=== PATIENT | female | born 1945 | race African-American/Black ===

== ENCOUNTER 2021-03-21 15:56 | Inpatient (IN) | payer MEDICARE, SELFPAY ==
[~2021-03-21] VITALS: Ht 162.6 cm; Wt 131.5 kg
[2021-03-21 15:56] VITALS: BP_SYST 154
--- NOTE | 2021-03-21 15:56 | NUR ---
BROUGHT IN BY FERMIN [facility] AND [facility], TRIAGED AND REPORT GIVEN TO QUOC
--- NOTE | 2021-03-21 16:15 | NUR ---
Pt. bib ACLS post dizzy episode at home, pt. states fell earlier today landed on her but no c/o pain denies any LOC or dizziness at the time of fall, "just tripped,"but then later became dizzy family called 911 on EMS arrival at pts. home BP was low, pt. currently has no pain nor dizziness
--- NOTE | 2021-03-21 17:14 | NUR ---
pulse 130 prior to lopressor, post IVP pulse 111
[2021-03-21] MEDS ORDERED: METOPROLOL TARTRATE 5 MG/5 ML AMPUL IVP ONE (17:15)
--- NOTE | 2021-03-21 17:21 | NUR ---
ER at bedside examining patient.
[2021-03-21 17:54] LABS: BASOPHILS % (AUTO) 0.1 % (0.0-2.0); EOSINOPHILS % (AUTO) 0.2 % (0.0-4.0); HEMATOCRIT 37.5 % (36-48); HEMOGLOBIN 12.5 g/dL (12.0-16.0); LYMPHOCYTES # (AUTO) 0.3 K/uL (1.0-5.5); LYMPHOCYTES % (AUTO) 2.3 % (20.5-51.5); MEAN CORPUSCULAR HEMOGLOBIN 33 pg (27-31); MEAN CORPUSCULAR HGB CONC 33 % (32-36); MEAN CORPUSCULAR VOLUME 98 fL (79.0-98.0); MONOCYTES % (AUTO) 7.3 % (1.7-9.3); NEUTROPHILS % (AUTO) 90.1 % (40.0-70.0); PLATELET COUNT (AUTO) 151 K/uL (130-430); RED BLOOD CELL COUNT(AUTO) 3.83 MIL/uL (4.2-6.2); RED CELL DISTRIBUTION WIDTH 17.6 % (9.0-15.0); WHITE BLOOD COUNT (AUTO) 13.3 K/uL (4.8-10.8)
[2021-03-21 18:06] LABS: CHLORIDE 100 mmol/L (98-107); SODIUM SERUM 133 mmol/L (136-145)
[2021-03-21 18:07] LABS: ALANINE AMINOTRANSFERASE 40 U/L (12-78); ALBUMIN 2.9 g/dL (3.4-4.8); ANION GAP 12 (5-15); ASPARTATE AMINOTRANSFERASE 64 U/L (10-37); CALCIUM 8.3 mg/dL (8.4-11.0); CREATININE 0.94 mg/dL (0.55-1.30); GLUCOSE 103 mg/dL (70-99); TOTAL BILIRUBIN 0.9 mg/dL (0.0-1.0); UREA NITROGEN, BLOOD 15 mg/dL (8-21)
[2021-03-21 18:08] LABS: POTASSIUM 2.9 mmol/L (3.5-5.1)
[2021-03-21] MEDS ORDERED: MAGNESIUM SULFATE 50 ML IV ONE (18:15)
[2021-03-21] MEDS ORDERED: POTASSIUM CHLORIDE 20 MEQ/PKT PACKET PO ONE (18:15)
[2021-03-21] MEDS ORDERED: KCL 40 mEq in 100 mL (PREMIX) 100 ML IV ONE (18:15)
--- NOTE | 2021-03-21 19:20 | NUR ---
Amadou sánchez in ED - 03/21/21 at 1930 by SDEDGJL Report given to KELLY Hernandez for continuation of care
--- NOTE | 2021-03-21 19:28 | NUR ---
pt was up to bedside commode when getting back to bed she became sob. start o2 at 4 l nc
[2021-03-21] MEDS ORDERED: cefTRIAXone 1 GM VIAL IM ONE (19:30)
[2021-03-21] MEDS: LIDOCAINE PATCH 5% 1 EA TP SCH (19:30)
[2021-03-21] MEDS ORDERED: KCL 20 mEq in D5/0.45NS 1000mL 1,000 ML IV ONE (19:30)
[2021-03-21] MEDS ORDERED: ACETAMINOPHEN 500 MG TABLET PO ONE (19:30)
[2021-03-21] MEDS ORDERED: DOXYCYCLINE HYCLATE 100 MG CAPSULE PO ONE (19:30)
[2021-03-21] MEDS ORDERED: cefTRIAXone 1 GM IVPB PREMIX 50 ML IV ONE (20:00)
[2021-03-21 20:12] LABS: BILIRUBIN,URINE NEGATIVE (NEGATIVE); BLOOD, URINE 3+ (NEGATIVE); COLOR,URINE YELLOW (YELLOW); GLUCOSE,URINE NEGATIVE (NEGATIVE); KETONES,URINE 1+ (NEGATIVE); LEUKOCYTE ESTERASE ,URINE TRACE (NEGATIVE); NITRITE, URINE NEGATIVE (NEGATIVE); PROTEIN URINE 2+ (NEGATIVE); UROBILINOGEN,URINE 0.2 (0.2-1.0)
--- NOTE | 2021-03-21 20:25 | NUR ---
PT HELPED UP TO BEDSIDE COMMODE, LINENS CHANGED, PT HAD DIARRHEA.. PLACE BACK IN BED AND REPOSITIONEDFOR COMFORY. PLACED BACKE ON BEDSIDE MONITOR
--- NOTE | 2021-03-21 21:09 | NUR ---
Note gonzalo in EDM - 03/21/21 at 2113 by SDEDGJL Patient will be admitted to care of [facility]. Admitted to TELE unit. Will go to room 102A. Belongings list completed. Complete and up to date summary report printed. SBAR report to be given at bedside with opportunity for questions.
[2021-03-21 21:50] LABS: CLARITY/URINE HAZY (CLEAR)
--- NOTE | 2021-03-21 22:02 | NUR ---
20 GA PIV x 1 attempt to LHA, good blood return, easy NS flush. D5 1/2 with 20 mEq KCl at 100 mL/hr now infusing to new site.
--- NOTE | 2021-03-21 22:02 | NUR ---
IV TO RIGHT HAND CAME OUT, RESTARTED BY FRANK MENDOZA. PT REMAINS ON MONITOR. V/S STABLE. SON AT BEDSIDE
[2021-03-21 22:23] LABS: BACTERIA,URINE MODERATE /HPF (None Seen); MUCUS,URINE None Seen /LPF (None Seen)
--- NOTE | 2021-03-21 23:09 | NUR ---
SPOKE TO MD SHANIA DALE DOESNOT WANT TO TRANSPORT WITH BLOOD PRESSURE BEING 91/57. PT TO RECEIVE BOLUS
--- NOTE | 2021-03-21 23:15 | NUR ---
B/P now 81/48, hr 102. Dr. Kline made aware. NS 250 mL bolus in progress per verbal order of Dr. Kline. Pt alert, responsive, denies c/o pain or discomfort.
[2021-03-21] MEDS ORDERED: AZITHROMYCIN 500 MG in NS 250 ML IV ONE (23:30)
[2021-03-21] MEDS ORDERED: NS 500 ML IV ONE (23:30)
--- NOTE | 2021-03-21 23:30 | NUR ---
B/P 104/62, HR 100. NS bolus 500 mL now infusing.
[2021-03-21] MEDS ORDERED: AZITHROMYCIN 500 MG/VIAL (ZITHROMAX) IV ONE (23:33)
--- NOTE | 2021-03-22 00:15 | NUR ---
PT RECEIVING A BOLUS OF FLUIDS TO TRY AND GET IV HIGHER, REMAINS ON MONITOR.
--- NOTE | 2021-03-22 00:38 | NUR ---
flu swab performed at bedside and sent to lab
--- NOTE | 2021-03-22 01:25 | NUR ---
B/P 88/61, HR 94. Dr. Stevens notified. Orders received to change admit status to ICU and start Levophed drip and titrate to maintain SBP > 90 mmHg. process area supervisor notified of admit status change.
[2021-03-22] MEDS ORDERED: NOREPINEPHRINE 4 MG/4 ML VIAL IV ONE (01:27)
[2021-03-22] MEDS ORDERED: NOREPINEPHRINE BITARTRATE 4 MG in D5W 246 ML IV PRN (01:30)
--- NOTE | 2021-03-22 01:30 | NUR ---
Pt ICU hold. Levophed drip started at 0.2 mcg/kg/min to patent PIV LHA. Pt alert, responsive, denies c/o pain or discomfort. No needs verbalized at this time.
--- NOTE | 2021-03-22 01:44 | NUR ---
SON REMAINS AT BEDSIDE, VERY UPSET THAT THE DOCTOR HAS NOT SPOKEN TO HIM IN REGARDS TO HIS MOTHERS CONDTION. WAITING FOR DR MARS TO SPEAK WITH SON.. SON WAS ADVISED WHY MOM CANNOT BE TRANSFERRED TO [place] DUE TO UNSTABLE BP. LEVAPHED STARTING NOW. NO BEDS AVAILABLE IN ICU, PT WILL BE HELD IN ER UNTIL BED OPENS UP.
--- NOTE | 2021-03-22 02:00 | NUR ---
Pt's son left and daughter present to bedside. Daughter, Criss, provides contact information: [phone].
[2021-03-22] MEDS ORDERED: ONDANSETRON HCL 4 MG/2 ML VIAL ONE (02:06)
[2021-03-22] MEDS ORDERED: ONDANSETRON HCL 4 MG/2 ML VIAL IVP ONE (02:15)
--- NOTE | 2021-03-22 02:15 | NUR ---
B/P 123/83, HR 92. Levophed drip decreased to 0.1 mcg/kg/min.
--- NOTE | 2021-03-22 02:41 | NUR ---
Amadou sánchez in ED - 03/22/21 at 0553 by SDEDGJL PT TO BE MOVED TO ICU FOR LOW B/P, STARTED LEVAPHED.
--- NOTE | 2021-03-22 03:45 | NUR ---
B/P 128/78, HR 109. Levophed drip turned off. D5 1/2 NS with 20 mEq KCL at 100 mL/hr to patent and secure PIV LHA, no s/s infiltration noted.
--- NOTE | 2021-03-22 03:55 | NUR ---
Pt states that she needs to use the bedpan. Bedpan placed.
--- NOTE | 2021-03-22 03:57 | NUR ---
Pt resting with eyes closed, easily awakened, denies c/o pain or discomfort. Small sips of water provided. VSS, NAD. Levophed drip remains off. D5 1/2 NS with KCl 20 mEq continues to infuse at 100 mL/hr to LHA with no s/s infiltration to PIV site.
--- NOTE | 2021-03-22 04:05 | NUR ---
Bedpan removed. Pt had small brown watery BM. Pt cleaned. Skin intact to buttocks, coccyx, sacrum, and back.
--- NOTE | 2021-03-22 05:00 | NUR ---
Pt resting quietly, even and non-labored respirations. Pt denies c/o pain or discomfort, no needs verbalized at this time. VSS, NAD.
--- NOTE | 2021-03-22 06:00 | NUR ---
Specimen collected for MRSA and sent to lab.
--- NOTE | 2021-03-22 06:15 | NUR ---
Pt placed to hospital bed. Pt denies c/o pain or discomfort, no needs verbalized. VSS, NAD.
--- NOTE | 2021-03-22 06:58 | NUR ---
CONSULTATION PAGED/CALLED Reason for Consultation: [] HYPOXIA Person Who was Notified: [] DORENE Consulting Physician: [] DR JANG, A Reliner Specialty: [] PULMO Ordering Physician: [] DR MEYERS
--- NOTE | 2021-03-22 07:07 | NUR ---
Pt's daughter called. Updated on pt status. Questions answered.
--- NOTE | 2021-03-22 07:14 | NUR ---
REPORT RECEIVED FROM KELLY MARIE FOR CONTINUING CARE
--- NOTE | 2021-03-22 07:15 | NUR ---
Pt report given to oncoming RN.
--- NOTE | 2021-03-22 07:31 | NUR ---
CONSULTATION PAGED/CALLED Reason for Consultation: [] A FIB Person Who was Notified: [] DR BUSH Consulting Physician: [] DR BUSH Lines Tender Specialty: [] CARDIO Ordering Physician: [] DR MEYERS
[2021-03-22] MEDS ORDERED: DOCUSATE SODIUM 100 MG CAPSULE PO PRN (08:00)
[2021-03-22] MEDS ORDERED: MUPIROCIN 2% TOPICAL OINTMENT 22 GM NS PRN (08:00)
[2021-03-22] MEDS ORDERED: ZOLPIDEM TARTRATE 5 MG TABLET PO PRN (08:00)
[2021-03-22] MEDS ORDERED: MORPHINE 2 MG/ML INJ. SYRINGE IVP PRN ×2 (08:00)
[2021-03-22] MEDS ORDERED: LORazepam 2 MG/ML VIAL IVP PRN (08:00)
[2021-03-22] MEDS ORDERED: POTASSIUM CHLORIDE 20 MEQ TAB.PRT.SR PO PRN (08:00)
[2021-03-22] MEDS ORDERED: NALOXONE HCL 0.4 MG/ML AMP (NARCAN) IVP PRN ×2 (08:00)
[2021-03-22] MEDS ORDERED: ONDANSETRON HCL 4 MG/2 ML VIAL IVP PRN (08:00)
[2021-03-22] MEDS ORDERED: MAGNESIUM SULFATE 50 ML IV PRN (08:00)
--- NOTE | 2021-03-22 08:20 | NUR ---
RHIANNA MEYERS PT TO BE DOWNGRADED TO TELEMETRY
[2021-03-22 08:28] LABS: BASOPHILS % (AUTO) 0.3 % (0.0-2.0); EOSINOPHILS # (AUTO) 0.1 K/uL (0.0-0.4); EOSINOPHILS % (AUTO) 0.9 % (0.0-4.0); HEMATOCRIT 33.5 % (36-48); HEMOGLOBIN 11.1 g/dL (12.0-16.0); LYMPHOCYTES # (AUTO) 0.1 K/uL (1.0-5.5); LYMPHOCYTES % (AUTO) 0.8 % (20.5-51.5); MEAN CORPUSCULAR HEMOGLOBIN 30 pg (27-31); MEAN CORPUSCULAR HGB CONC 33 % (32-36); MEAN CORPUSCULAR VOLUME 91 fL (79.0-98.0); MONOCYTES # (AUTO) 0.9 K/uL (0.0-1.0); NEUTROPHILS # (AUTO) 13.5 K/uL (1.8-7.7); PLATELET COUNT (AUTO) 142 K/uL (130-430); RED BLOOD CELL COUNT(AUTO) 3.68 MIL/uL (4.2-6.2); WHITE BLOOD COUNT (AUTO) 14.6 K/uL (4.8-10.8)
[2021-03-22 08:43] LABS: ANION GAP 10 (5-15); CHLORIDE 103 mmol/L (98-107); CREATININE 0.78 mg/dL (0.55-1.30); GLUCOSE 129 mg/dL (70-99); SODIUM SERUM 135 mmol/L (136-145); UREA NITROGEN, BLOOD 13 mg/dL (8-21)
[2021-03-22 08:47] LABS: POTASSIUM 2.9 mmol/L (3.5-5.1)
--- NOTE | 2021-03-22 09:02 | NUR ---
Patient will be admitted to care of DR. MEYERS. Admitted to TELE unit. Will go to room 123A. Belongings list completed. Complete and up to date summary report printed. SBAR report to be given at bedside with opportunity for questions.
[2021-03-22 09:30] VITALS: BP_SYST 133
--- NOTE | 2021-03-22 09:30 | NUR ---
ADMISSION NOTE ADMIT NOTE Received pt from ER to the floor with a diagnosis of atrial fibrillation. Admission process initiated. Patient was on 4L of oxygen via nasal canula, no sign of shortness of breath. Oxygen saturation 100%. IV on left hand intact and patent. Patient had a pain level of 5 when she came in and requested tylenol and refused the morphine. Patient oriented to pain management, safety and call light-teach back done. Verbalized understanding.
[2021-03-22] MEDS: HEPARIN SODIUM,PORCINE 5,000 UNITS/ML VIAL SUBCUT SCH ×2 (09:58→20:47)
[2021-03-22] MEDS: ACETAMINOPHEN 325 MG TABLET PO PRN ×2 (09:59→20:49)
[2021-03-22] MEDS ORDERED: cefTRIAXone 1 GM in D5W 50 ML IV SCH (10:00)
[2021-03-22] MEDS: LIDOCAINE PATCH 5% 1 EA TP SCH (10:00)
[2021-03-22] MEDS ORDERED: ATENOLOL 50 MG TABLET (TENORMIN) PO ONE (10:15)
[2021-03-22] MEDS ORDERED: POTASSIUM CHLORIDE 40 MEQ, LIDOCAINE JECT 2% PF 100 MG 50 MG in NS 250 ML IV ONE (11:30)
--- NOTE | 2021-03-22 13:12 | NUR ---
IV POTASSIUM FOLLOWED-UP WITH PHARMACY REGARDING PATIENT'S IV POTASSIUM REPLACEMENTS; THEY SAID THEY WILL SEND IT SOON.
--- NOTE | 2021-03-22 14:07 | NUR ---
Spoke w/ decision science analyst at [facility]-Notified him of patient's sability to transfer to [facility]. Faxed transfer order to [facility].
--- NOTE | 2021-03-22 14:15 | NUR ---
IV POTASSIUM IV POTASSIUM STARTED. PATIENT UNDERSTANDS INDICATION FOR MEDICATION AND ITS SIDE EFFECTS.
--- NOTE | 2021-03-22 15:24 | NUR ---
Spoke w/ SADIE Chen at [facility] [phone]- she will need K+ post k-rider infusion to proceed w/ transfer of patient to [facility]. Please call with post infusion K+ level.RN notified of the above.
[2021-03-22 15:42] VITALS: BP_SYST 110
[2021-03-22] MEDS ORDERED: metroNIDAZOLE 500 mg/NS 100 ML IV ONE (16:00)
--- NOTE | 2021-03-22 16:00 | NUR ---
DUE FLAGYL FLAGYL IS DUE BUT IV POTASSIUM IS STILL RUNNING. WILL ADMINISTER ONE DOSE ANTIBIOTIC SOON KRIDER IS FULLY ADMINISTERED.
--- NOTE | 2021-03-22 18:57 | NUR ---
CLOSING NOTES SPOKE WITH LAB STAFF, WAS INFORMED THAT THEY HAVE ALREADY DRAWN BLOOD TO CHECK POTASSIUM LEVELS. PATIENT IS RESTING, ATE DINNER WELL. SON AT BEDSIDE. NO SHORTNESS OF BREATH ON ROOM AIR. PAIN IS CONTROLLED AT THIS TIME. NEEDS MET THROUGHOUT SHIFT. SAFETY CHECKS DONE. CALL LIGHT WITHIN REACH. WILL ENDORSE TO NIGHT NURSE.
[2021-03-22 19:14] LABS: ANION GAP 9 (5-15); CALCIUM 8.2 mg/dL (8.4-11.0); CHLORIDE 104 mmol/L (98-107); CREATININE 0.68 mg/dL (0.55-1.30); GLUCOSE 105 mg/dL (70-99); POTASSIUM 3.6 mmol/L (3.5-5.1); SODIUM SERUM 135 mmol/L (136-145); UREA NITROGEN, BLOOD 12 mg/dL (8-21)
--- NOTE | 2021-03-22 19:15 | NUR ---
OPENING NOTES Patient resting in bed - no s/s pain or distress noted. Respirations even and unlabored - head of bed elevated 4L NC. IV site patent - no s/s redness, infection, or infiltration. Bed locked and in lowest position. Call light within reach - bed alarm on. Family at bedside.
[2021-03-22 20:00] VITALS: BP_SYST 112
[2021-03-22 20:26] VITALS: BP_SYST 110; BP_SYST 112
--- NOTE | 2021-03-22 20:47 | NUR ---
PCR COLLECTED AT THIS TIME PER DAY SHIFT, ORDER WAS PRESENT. OF CURRENT SHIFT AT THIS TIME, PCR WAS NOT COLLECTED BY DAYSHIFT. PUI PROTOCOL PUT IN PLACE. Patient stable at this time.
--- NOTE | 2021-03-22 21:51 | NUR ---
JOHANNY Booker [facility] nurse, Dr. French iphone developer Calling in regards to TPN orders - whether to taper or DC or adjust current order due to GTUBE insertion and feeding tolerated at this time. At this time, gtube feeding running 30cc/hr Addendum: 03/22/21 at 2152 by Shamar Lopez RN INCORRECT PATIENT DOCUMENTATION IGNORE THIS
[2021-03-22] MEDS ORDERED: metroNIDAZOLE 500 mg/NS 100 ML IV SCH (22:00)
--- NOTE | 2021-03-22 23:00 | NUR ---
SUYAPA HOWARD CALLS GIVES TRANSFER INFO: Room 4010, give report to #[phone] Pickup 0100 03/23/2021 Physician Thomas Melendez with request of CXR CD+Paper report Transport [facility]
--- NOTE | 2021-03-23 00:05 | NUR ---
GAVE REPORT FOR TRANSFER AT THIS TIME TRANSFER AT [address] CARMELINA ALMEIDA - REPORT GIVEN TO LEE MENDOZA
--- NOTE | 2021-03-23 00:25 | NUR ---
NOTIFIED SON REGARDING TRANSFER ELOY SORIA AT THIS TIME
--- NOTE | 2021-03-23 01:20 | NUR ---
D/C TRANSFER AT THIS TIME Escorted by 2 senior customer service representative Az and Gadiel via [facility]. Patient in stable condition - V/S WNL. Patient belongings with patient.
[2021-03-23] MEDS ORDERED: ATENOLOL 50 MG TABLET (TENORMIN) PO SCH (09:00)
== END 2021-03-23 06:04 | disposition short-term general hospital (02) | DRG 871 ==
LOC: SED 15:56 → STU 23:21
PROVIDERS: ADMIT General Practice; ATTEND General Practice
DX: A41.9 Sepsis, unspecified organism (principal); R65.21 Severe sepsis with septic shock; J18.9 Pneumonia, unspecified organism; E87.1 Hypo-osmolality and hyponatremia; E44.1 Mild protein-calorie malnutrition; N39.0 Urinary tract infection, site not specified; Z68.42 Body mass index [BMI] 45.0-49.9, adult; J98.11 Atelectasis; M17.0 Bilateral primary osteoarthritis of knee; Z20.822 Contact with and (suspected) exposure to COVID-19; I10 Essential (primary) hypertension; Z96.653 Presence of artificial knee joint, bilateral; E87.6 Hypokalemia; E66.01 Morbid (severe) obesity due to excess calories; Z90.710 Acquired absence of both cervix and uterus
CPT/HCPCS: 36415; 71045; 80048; 80053; 81000; 83036; 83605; 83735; 83880; 84484; 85025; 86710; 87081; 87086; 93005; 93306; 96365; 96367; 96368; 96375; 99291; G0378; J0456; J0696; J1644; J2405; J3475; J3480; J3490; J7050; J7060; U0003